=== PATIENT | female | born 1940 | race Caucasian/White ===

== ENCOUNTER 2019-08-19 11:47 | Inpatient (IN) | payer OTHER ==
[~2019-08-19] VITALS: Ht 154.9 cm; Wt 80.7 kg
--- NOTE | 2019-08-19 12:40 | ED General ---
General Chief Complaint: General Problems/Pain Stated Complaint: DIARRHEA; NAUSEA; GEN WEAKNESS Source of Information: Patient Exam Limitations: No Limitations History of Present Illness Date Seen by Provider: Aug 19, 2019 Time Seen by Provider: 12:39 Initial Comments Patient complains of loose stools and nausea and vomiting since last night. She feels very weak. She is unsteady on her feet. Denies fevers or chills. She is dyspneic with any exertion. No complaints of fevers chills or chest pain. She lives alone Allergies and Home Medications Allergies Coded Allergies: Sulfa (Sulfonamide Antibiotics) (Verified Allergy, Unknown, 08/19/19) levofloxacin (Verified Allergy, Unknown, 08/19/19) Patient Home Medication List Home Medication List Reviewed: Yes Review of Systems Review of Systems Constitutional: No chills, No fever; malaise, weakness Respiratory: short of breath Cardiovascular: No chest pain, No edema Gastrointestinal: diarrhea, nausea, vomiting Genitourinary: no symptoms reported Skin: no symptoms reported Psychiatric/Neurological: Weakness All Other Systems Reviewed Negative Unless Noted: Yes Past Onokhjh-Rkvcyo-Ahuqxt Hx Patient Social History Recent Foreign Travel: No Physical Exam Vital Signs Vital Signs - First Documented 08/19/19 12:20 Temp 36.9 Pulse 96 Resp 18 B/P (MAP) 98/56 (70) Pulse Ox 93 O2 Delivery Room Air Capillary Refill : Height, Weight, BMI Height: '" Weight: lbs. oz. kg; BMI Method: General Appearance: No Apparent Distress, WD/WN, Obese Eyes: Bilateral Eye PERRL, Bilateral Eye EOMI HEENT: PERRL/EOMI, Pharynx Normal Neck: Supple Respiratory: Lungs Clear, Normal Breath Sounds Cardiovascular: Regular Rate, Rhythm, No Edema Gastrointestinal: Normal Bowel Sounds, No Organomegaly, No Pulsatile Mass, Non Tender, Soft Back: Normal Inspection Extremity: Normal Inspection, Normal Range of Motion Neurologic/Psychiatric: Alert, Oriented x3, No Motor/Sensory Deficits, Normal Mood/Affect Skin: Normal Color, Warm/Dry Focused Exam Lactate Level 08/19/19 12:55: Lactic Acid Level 12.12*H 08/19/19 14:10: Lactic Acid Level 11.19*H Lactic Acid Level Laboratory Tests Test 08/19/19 12:55 08/19/19 14:10 Lactic Acid Level 12.12 MMOL/L (0.50-2.00) *H 11.19 MMOL/L (0.50-2.00) *H Progress/Results/Core Measures Suspected Sepsis SIRS Temperature: Pulse: Respiratory Rate: Laboratory Tests 08/19/19 12:55: White Blood Count 12.9H Blood Pressure / Mean: 08/19/19 12:55: Lactic Acid Level 12.12*H 08/19/19 14:10: Lactic Acid Level 11.19*H Laboratory Tests 08/19/19 12:55: Creatinine 1.78H, Platelet Count 189, Total Bilirubin 0.8 Results/Orders Lab Results Laboratory Tests Test 08/19/19 12:55 08/19/19 13:36 08/19/19 14:10 08/19/19 14:20 Range/Units White Blood Count 12.9 H 4.3-11.0 10^3/uL Red Blood Count 4.80 4.35-5.85 10^6/uL Hemoglobin 14.8 11.5-16.0 G/DL Hematocrit 46 35-52 % Mean Corpuscular Volume 95 80-99 FL Mean Corpuscular Hemoglobin 31 25-34 PG Mean Corpuscular Hemoglobin Concent 32 32-36 G/DL Red Cell Distribution Width 14.3 10.0-14.5 % Platelet Count 189 130-400 10^3/uL Mean Platelet Volume 10.3 7.4-10.4 FL Neutrophils (%) (Auto) 84 H 42-75 % Lymphocytes (%) (Auto) 7 L 12-44 % Monocytes (%) (Auto) 8 0-12 % Eosinophils (%) (Auto) 0 0-10 % Basophils (%) (Auto) 0 0-10 % Neutrophils # (Auto) 10.8 H 1.8-7.8 X 10^3 Lymphocytes # (Auto) 0.9 L 1.0-4.0 X 10^3 Monocytes # (Auto) 1.1 H 0.0-1.0 X 10^3 Eosinophils # (Auto) 0.0 0.0-0.3 10^3/uL Basophils # (Auto) 0.0 0.0-0.1 10^3/uL Neutrophils % (Manual) 79 % Lymphocytes % (Manual) 6 % Monocytes % (Manual) 10 % Eosinophils % (Manual) 0 % Basophils % (Manual) 0 % Metamyelocytes % 2 % Band Neutrophils 3 % Sodium Level 138 135-145 MMOL/L Potassium Level 4.2 3.6-5.0 MMOL/L Chloride Level 97 L 98-107 MMOL/L Carbon Dioxide Level 16 L 21-32 MMOL/L Anion Gap 25 H 5-14 MMOL/L Blood Urea Nitrogen 25 H 7-18 MG/DL Creatinine 1.78 H 0.60-1.30 MG/DL Estimat Glomerular Filtration Rate 27 BUN/Creatinine Ratio 14 Glucose Level 271 H 70-105 MG/DL Lactic Acid Level 12.12 *H 11.19 *H 0.50-2.00 MMOL/L Calcium Level 9.5 8.5-10.1 MG/DL Corrected Calcium 8.5-10.1 MG/DL Magnesium Level 2.4 1.6-2.4 MG/DL Total Bilirubin 0.8 0.1-1.0 MG/DL Aspartate Amino Transf (AST/SGOT) 519 H 5-34 U/L Alanine Aminotransferase (ALT/SGPT) 379 H 0-55 U/L Alkaline Phosphatase 78 40-136 U/L Troponin I > 25.00 *H <0.30 NG/ML Pro-B-Type Natriuretic Peptide 1519.0 H 1449.0 H <75.0 PG/ML Total Protein 7.7 6.4-8.2 GM/DL Albumin 4.6 H 3.2-4.5 GM/DL Lipase 21 8-78 U/L Urine Color YELLOW Urine Clarity CLEAR Urine pH 7.5 5-9 Urine Specific [place] 1.020 1.016-1.022 Urine Protein 1+ H NEGATIVE Urine Glucose (UA) NEGATIVE NEGATIVE Urine Ketones 1+ H NEGATIVE Urine Nitrite NEGATIVE NEGATIVE Urine Bilirubin NEGATIVE NEGATIVE Urine Urobilinogen 0.2 < = 1.0 MG/DL Urine Leukocyte Esterase NEGATIVE NEGATIVE Urine RBC (Auto) TRACE H NEGATIVE Urine RBC 5-10 H /HPF Urine WBC NONE /HPF Urine Squamous Epithelial Cells RARE /HPF Urine Crystals NONE /LPF Urine Bacteria NEGATIVE /HPF Urine Casts PRESENT /LPF Urine Granular Casts RARE /LPF Urine Mucus NONE /LPF Urine Culture Indicated NO My Orders Orders - ENEIDA LISA MD Cbc With Automated Diff (08/19/19 12:07) Comprehensive Metabolic Panel (08/19/19 12:07) Lactic Acid Analyzer (08/19/19 12:07) Lipase (08/19/19 12:07) Magnesium (08/19/19 12:07) Ua Culture If Indicated (08/19/19 12:07) Ns Iv 1000 Ml (Sodium Chloride 0.9%) (08/19/19 13:15) Ondansetron Injection (Zofran Injectio (08/19/19 13:15) Manual Differential (08/19/19 12:55) Blood Culture (08/19/19 14:03) Chest 1 View Ap/Pa Only (08/19/19 14:06) Ns Iv 1000 Ml (Sodium Chloride 0.9%) (08/19/19 14:15) Troponin I Fs (08/19/19 14:45) Ekg Tracing (08/19/19 14:45) Probnp Fs (08/19/19 14:48) Blood Culture (08/19/19 15:06) Piperacillin/Tazobactam (Bulk) (Zosyn In (08/19/19 15:45) Probnp Fs (08/19/19 13:36) Troponin I Fs (08/19/19 13:36) Piperacillin Sodium/Tazobactam (Zosyn Vi (08/19/19 15:51) Ns (Ivpb) (Sodium Chloride 0.9% Ivpb Bag (08/19/19 15:52) Medications Given in ED Current Medications Medications Dose Ordered Sig/Luis Miguel Route Start Time Stop Time Status Last Admin Dose Admin Ondansetron HCl 4 mg ONCE ONCE IVP 08/19/19 13:15 08/19/19 13:16 DC 08/19/19 13:12 4 MG Piperacillin Sod/ Tazobactam Sod 4.5 gm/Sodium Chloride 120 ml @ 240 mls/hr ONCE ONCE IV 08/19/19 15:45 08/19/19 16:14 08/19/19 16:02 240 MLS/HR Vital Signs/I&O 08/19/19 12:20 Temp 36.9 Pulse 96 Resp 18 B/P (MAP) 98/56 (70) Pulse Ox 93 O2 Delivery Room Air Capillary Refill : Progress Note : Progress Note When I reexamined the patient around 1430. She complained of shortness of air. She still denied chest pain. I ordered a EKG and a troponin. EKG was done at approximately [address] elevation. I paged Dr. Greene who promptly called back. We set him EKG reviewed. He nitially thought the changes were chronic. I got back her elevated troponin (20) at 1545. I spoke with Dr. Greene again he recommended transfer to the [place] ICU where he would cath her today. EMS was summoned and they transported the patient at 1610. Patient continues to deny chest pain. I also spoke with Dr. Monae the hospitalist on- call take care of in the hospital Departure Communication (Admissions) Time/Spoke to Admitting Phy: 15:[address] Monae and Dr. Greene about admission. Impression Primary Impression: Sepsis Additional Impression: Myocardial infarction acute Disposition: 09 ADMITTED INPATIENT Condition: Critical Admissions Decision to Admit Reason: Admit from ER (General) Decision to Admit/Date: Aug 19, 2019 Time/Decision to Admit Time: 15:00 Departure-Patient Inst. Referrals: SHREYAS DE LEÓN DO (PCP/Family) Primary Care Physician ENEIDA LISA MD Aug 19, 2019 12:40 POS
[2019-08-19 13:12] LABS: BASOPHILS % (AUTO) 0 % (0-10); EOSINOPHILS % (AUTO) 0 % (0-10); HEMATOCRIT 46 % (35-52); HEMOGLOBIN 14.8 G/DL (11.5-16.0); LYMPHOCYTES % (AUTO) 7 % (12-44); MEAN CORPUSCULAR HEMOGLOBIN 31 PG (25-34); MEAN CORPUSCULAR HGB CONC 32 G/DL (32-36); MEAN CORPUSCULAR VOLUME 95 FL (80-99); MEAN PLATELET VOLUME 10.3 FL (7.4-10.4); MONOCYTES % (AUTO) 8 % (0-12); NEUTROPHILS % (AUTO) 84 % (42-75); PLATELET COUNT 189 10^3/uL (130-400); RED CELL DISTRIBUTION WIDTH 14.3 % (10.0-14.5); WHITE BLOOD COUNT 12.9 10^3/uL (4.3-11.0)
[2019-08-19 13:13] LABS: LYMPHOCYTES # (AUTO) 0.9 X 10^3 (1.0-4.0); MONOCYTES # (AUTO) 1.1 X 10^3 (0.0-1.0); NEUTROPHILS # (AUTO) 10.8 X 10^3 (1.8-7.8)
[2019-08-19] MEDS ORDERED: ONDANSETRON 4 MG/2 ML (SDV) Z0FRAN IVP ONE (13:15)
[2019-08-19] MEDS ORDERED: NS IV 1000 ML 1,000 ML IV SCH ×4 (13:15→18:04)
[2019-08-19 13:28] LABS: BAND NEUTROPHILS 3 %; BASOPHILS % (MANUAL) 0 %; EOSINOPHILS % (MANUAL) 0 %; LYMPHOCYTES % (MANUAL) 6 %; METAMYELOCYTES % 2 %; MONOCYTES % (MANUAL) 10 %; NEUTROPHILS % (MANUAL) 79 %
[2019-08-19 13:31] LABS: ALKALINE PHOSPHATASE 78 U/L (40-136); BILIRUBIN,TOTAL 0.8 MG/DL (0.1-1.0); BUN/CREATININE RATIO 14; CALCIUM 9.5 MG/DL (8.5-10.1); CARBON DIOXIDE 16 MMOL/L (21-32); CHLORIDE 97 MMOL/L (98-107); CREATININE SERUM 1.78 MG/DL (0.60-1.30); GFR ESTIMATED 27; GLUCOSE 271 MG/DL (70-105); MAGNESIUM 2.4 MG/DL (1.6-2.4); POTASSIUM 4.2 MMOL/L (3.6-5.0); SODIUM 138 MMOL/L (135-145)
[2019-08-19 13:32] LABS: ALANINE AMINOTRANSFERASE 379 U/L (0-55); ALBUMIN 4.6 GM/DL (3.2-4.5); LIPASE 21 U/L (8-78); TOTAL PROTEIN 7.7 GM/DL (6.4-8.2)
[2019-08-19 14:42] LABS: BILIRUBIN,URINE NEGATIVE (NEGATIVE); CLARITY,URINE CLEAR; COLOR,URINE YELLOW; GLUCOSE, URINE (UA) NEGATIVE (NEGATIVE); KETONES,URINE 1+ (NEGATIVE); LEUKOCYTE ESTERASE ,URINE NEGATIVE (NEGATIVE); NITRITE,URINE NEGATIVE (NEGATIVE); PH,URINE 7.5 (5-9); PROTEIN,URINE 1+ (NEGATIVE)
[2019-08-19 14:43] LABS: BACTERIA,URINE NEGATIVE /HPF; GRANULAR CASTS,URINE RARE /LPF; SQUAMOUS EPITHELIAL CELL,UR RARE /HPF
--- NOTE | 2019-08-19 14:55 | Diagnostic Imaging Report ---
INDICATION: Shortness of air. COMPARISON: None. FINDINGS: Single frontal radiographic view of the chest was obtained and shows a large air-fluid level projecting over the cardiomediastinal structures consistent with probable large hiatal hernia. Cardiac silhouette appears prominent, but may be exaggerated by mass effect or superimposition of shadows from the hiatal hernia. Pulmonary vasculature is within normal limits. There is prominent right paratracheal fullness as well. Otherwise, lungs are clear. There is no large effusion or pneumothorax. Osseous structures show no gross acute abnormalities. IMPRESSION: 1. Large hiatal hernia. 2. Cardiomegaly versus artifact related to the large hiatal hernia. 3. Prominence of the right paratracheal region. This may be artifact as well and related to mediastinal vessels or mediastinal fat. Mediastinal mass is not excluded. Correlation with post contrast CT chest is advised. Dictated by: Dictated on workstation # [id number]
--- NOTE | 2019-08-19 15:37 | NUR ---
Called [facility] to talk to Dr. Chin's nurse about getting a previous EKG on patient. They said they don't have records there and told me to call . Talked to them and they looked in patient's chart and they only had Doctor's interpretation saying NSR in 2006. There was no strip in file. Doctor Kimberlee was informed.
[2019-08-19] MEDS ORDERED: PIPERACILLIN/TAZOBACTAM (BULK) 4.5 GM in NS (IVPB) 100 ML IV ONE (15:45)
[2019-08-19] MEDS ORDERED: PIPERACILLIN/TAZO 4.5 GM VIAL (ZOSYN) IV ONE (15:51)
[2019-08-19] MEDS ORDERED: NS (IVPB) 100 ML ONE (15:52)
--- NOTE | 2019-08-19 16:04 | NUR ---
EMS arrived at this time. Report was given. Patient was loaded.
[2019-08-19] MEDS ORDERED: MIDAZOLAM 5 MG/5 ML (VERSED) VIAL ONE (16:20)
[2019-08-19] MEDS ORDERED: HEParin 1000 UNIT/ML (10ML VIAL) FOR BOLUS ONE (16:20)
[2019-08-19] MEDS ORDERED: LIDOCAINE 1% INJ 20 ML 20 ML VIAL ONE (16:20)
[2019-08-19] MEDS ORDERED: fentaNYL INJECTION 100 MCG/2 ML AMP ONE (16:20)
[2019-08-19] MEDS ORDERED: NITRO DRIP 25000 MCG/D5W 0 ML IV ONE (16:21)
[2019-08-19] MEDS ORDERED: NS IV 1000 ML 1,000 ML ONE (16:21)
[2019-08-19] MEDS ORDERED: HEParin (CATH LAB) 2,000 ML IV ONE (16:21)
[2019-08-19] MEDS ORDERED: EPTIFIBATIDE BOLUS 20 ML IV ONE (17:08)
[2019-08-19] MEDS ORDERED: ASPIRIN 81 MG CHEW (CHILDREN'S ASA) ONE (17:32)
[2019-08-19] MEDS ORDERED: CLOPIDOGREL 75 MG (PLAVIX) TABLET ONE (17:32)
--- NOTE | 2019-08-19 17:52 | Consultation-Cardiology ---
HPI-Cardiology Cardiology Consultation: Date of Consultation 08/19/19 Time Seen by a Provider: 17:00 Date of Admission Attending Physician Dr Monae Admitting Physician Jaren Marroquin DO Consulting Physician LORAINE SHAHID MD, MA, FACP, FACC, FSCAI, CCDS HPI: Chief Complaint: Reason for consultation: ST elevation on ECG HPI 79 yo woman who presented to [facility] ER with 24 hours of nausea and vomiting and diarrhea. She was diagnosed with gastroenteritis and sepsis and treated accordingly. Several hours after presentation, an ECG was done that showed ST elevation. Dr Mohan (ER physician) called us. The ECG was consistent with a completed anterior wall KS with probable aneurysm formation. Since she was not reporting any chest pain whatsoever, it was not clear if it were an old KS. Troponin was then performed on blood taken at presentation. It was elevated. She was being transferred to this hospital for sepsis. We recommended that transfer be expedited and cath be performed upon arrival. At time of arrival, pt was not reporting any cp or shortness of breath or palp or syncope. Her N/V/D had improved. She noted gen malaise and weakness Review of Systems-Cardiology Review of Systems Constitutional: As described under HPI Eyes: No vision change Ears/Nose/Throat: No ear discharge, No nasal drainage, No recent hearing loss Respiratory: As described under HPI Cardiovascular: As described under HPI Gastrointestinal: As described under HPI Genitourinary: No dysuria, No hematuria, No urine frequency changes Musculoskeletal: No back pain; joint pain (chronic) Skin: No rash, No ulcerations Psychiatric/Neurological: No seizure, No focal weakness, No syncope Hematologic: No bleeding abnormalities All Other Systems Reviewed Negative Unless Noted: Yes PNZ-Ksvaxc-Iveukk Hx Patient Social History Alcohol Use: Denies Use Recreational Drug Use: No Smoking Status: Never a Smoker 2nd Hand Smoke Exposure: No Recent Foreign Travel: No Recent Infectious Disease Expo: No Past Medical History PMH As described under Assessment. Family Medical History Family Medical History: She does not report fam h/o early CAD or SCD Allergies and Home Medications Allergies Coded Allergies: Sulfa (Sulfonamide Antibiotics) (Verified Allergy, Unknown, 08/19/19) levofloxacin (Verified Allergy, Unknown, 08/19/19) Patient Home Medication List Home Medication List Reviewed: Yes Physical Exam-Cardiology Physical Exam Vital Signs/I&O 08/19/19 08/19/19 12:20 16:07 Temp 36.9 36.8 Pulse 96 98 Resp 18 23 B/P (MAP) 98/56 (70) 125/62 Pulse Ox 93 94 O2 Delivery Room Air Nasal Cannula O2 Flow Rate 3.00 Capillary Refill : Less Than 3 Seconds Constitutional: AAO x 3, well-developed, well-nourished HEENT: EOMI, hearing is well preserved; No xanthelasmas are seen Neck: carotid pulses are 2 + bilaterally, with good upstrokes Respiratory: No accessory muscle use; other (fair to good air entry bilaterally) Cardiovascular: regular rate-rhythm, S1 and S2, systolic murmur (2/6 JOSE at card base) Gastrointestinal: No tender; soft; No guarding; rebound, other (large ventral abdomina hernia without signs of incarceration) Extremities: No clubbing, No cyanosis, No significant edema Neurologic/Psychiatric: grossly intact, power is 5/5 both on sides Skin: No rash on exposed areas, No ulcerations on exposed areas Data Review Labs Laboratory Tests 08/19/19 12:55: White Blood Count 12.9H, Red Blood Count 4.80, Hemoglobin 14.8, Hematocrit 46, Mean Corpuscular Volume 95, Mean Corpuscular Hemoglobin 31, Mean Corpuscular Hemoglobin Concent 32, Red Cell Distribution Width 14.3, Platelet Count 189, Mean Platelet Volume 10.3, Neutrophils (%) (Auto) 84H, Lymphocytes (%) (Auto) 7L , Monocytes (%) (Auto) 8, Eosinophils (%) (Auto) 0, Basophils (%) (Auto) 0, Neutrophils # (Auto) 10.8H, Lymphocytes # (Auto) 0.9L, Monocytes # (Auto) 1.1H, Eosinophils # (Auto) 0.0, Basophils # (Auto) 0.0, Neutrophils % (Manual) 79, Lymphocytes % (Manual) 6, Monocytes % (Manual) 10, Eosinophils % (Manual) 0, Basophils % (Manual) 0, Metamyelocytes % 2, Band Neutrophils 3, Sodium Level 138, Potassium Level 4.2, Chloride Level 97L, Carbon Dioxide Level 16L, Anion Gap 25H, Blood Urea Nitrogen 25H, Creatinine 1.78H, Estimat Glomerular Filtration Rate 27, BUN/Creatinine Ratio 14, Glucose Level 271H, Lactic Acid Level 12.12*H, Calcium Level 9.5, Corrected Calcium , Magnesium Level 2.4, Total Bilirubin 0.8, Aspartate Amino Transf (AST/SGOT) 519H, Alanine Aminotransferase (ALT/SGPT) 379H, Alkaline Phosphatase 78, Troponin I 65.96*H, Pro-B-Type Natriuretic Peptide 1519.0H, Total Protein 7.7, Albumin 4.6H, Lipase 21 08/19/19 14:10: Lactic Acid Level 11.19*H 08/19/19 14:20: Urine Color YELLOW, Urine Clarity CLEAR, Urine pH 7.5, Urine Specific [place] 1.020, Urine Protein 1+H, Urine Glucose (UA) NEGATIVE, Urine Ketones 1+H, Urine Nitrite NEGATIVE, Urine Bilirubin NEGATIVE, Urine Urobilinogen 0.2, Urine Leukocyte Esterase NEGATIVE, Urine RBC (Auto) TRACEH, Urine RBC 5-10H, Urine WBC NONE, Urine Squamous Epithelial Cells RARE, Urine Crystals NONE, Urine Bacteria NEGATIVE, Urine Casts PRESENT, Urine Granular Casts RARE, Urine Mucus NONE, Urine Culture Indicated NO 08/19/19 15:14: Troponin I 84.07*H, Pro-B-Type Natriuretic Peptide 1449.0H Laboratory Tests 08/19/19 12:55 A/P-Cardiology Assessment/Admission Diagnosis Recent STEMI (probably on 08/18/19). Card cath of 08/19/19: prox occlusion of a small caliber LAD (attempts at PCI unsuccessful) mod diffuse disease of the LCX and RCA, LVEDP approx 30, LVEF approx 35-40, apical dyskinesis/aneurysm Sepsis of undetermined etiology Renal failure, probably acute Ischemic cardiomyopathy and acute systolic CHF Discussion and Recomendations * ASA and clopidogrel for CAD * BB and YUDELKA-inhib for ischemic cm and CHF * I spoke with Dr Monae on the phone. He is managing sepsis and renal failure * Monitor labs * Prognosis guarded LORAINE SHAHID MD [facility] CCDS Aug 19, 2019 17:52 POS
[2019-08-19] MEDS ORDERED: ONDANSETRON 4 MG/2 ML (SDV) Z0FRAN ONE (18:14)
[2019-08-19] MEDS ORDERED: PATIENT MAY USE OWN MEDS, ALL PO SCH (18:15)
[2019-08-19] MEDS ORDERED: FUROSEMIDE 40 MG/4 ML INJ (LASIX) IVP ONE (18:15)
--- NOTE | 2019-08-19 18:15 | NUR ---
CHERRY PRIETO admitted to room , with an admitting diagnosis of sepsis, on from [place] via cart, accompanied by staff.CHERRY PRIETO introduced to surroundings, call light, bed controls, phone, TV, temperature control, lights, meal times, smoking policy, visitor policy, side rail policy, bathrooms and showers. Patient Rights given to patient in the handbook. CHERRY PRIETO verbalizes understanding that [facility] is not responsible for the loss or damage to any personal effects or valuables that are kept in the patients posession during their hospitalization. The following Patient Care Plans were discussed with the pt: Discharge Planning. CHERRY PRIETO verbalizes understanding of Interdisciplinary Patient Education. Patient and/or family were informed about the Rapid Response Team and its purpose.
[2019-08-19] MEDS ORDERED: NS IV 500 ML 500 ML ONE (18:29)
[2019-08-19] MEDS ORDERED: NS IV 1000 ML 2,000 ML ONE (18:29)
[2019-08-19] MEDS ORDERED: PROMETHAZINE INJ 25 MG/ML (PHENERGAN) AMP IVP PRN (18:30)
[2019-08-19] MEDS ORDERED: NS IV ONE (18:30)
[2019-08-19] MEDS ORDERED: DOBUTamine DRIP 250 ML IV SCH (18:30)
[2019-08-19 18:45] VITALS: BP 104/64
[2019-08-19 19:00] VITALS: BP 101/63
[2019-08-19 19:08] LABS: ABG BASE EXCESS -17.7 MMOL/L (-2.5-2.5); ABG OXYGEN SATURATION 97 % (94-100); ABG PO2 99 MMHG (79-93); ABG TCO2 8.6 MMOL/L (21.0-31.0)
[2019-08-19] MEDS ORDERED: NS (IVPB) 250 ML ONE (19:09)
[2019-08-19] MEDS ORDERED: NOREPINEPHRINE 4 MG/4 ML (LEVOPHED) AMP IV ONE (19:09)
[2019-08-19 19:10] LABS: ABG PCO2 18 MMHG (35-45); ABG PH 7.28 (7.37-7.43)
[2019-08-19 19:11] LABS: ALLENS TEST YES-POS; INSPIRED O2 8; PATIENT TEMP 36.3; VENTILATOR NO
[2019-08-19] MEDS ORDERED: 1/2 NS IV SOLUTION 1,000 ML IV ONE (19:11)
[2019-08-19] MEDS ORDERED: SODIUM BICARB 8.4% 50 MEQ/50 ML VIAL ONE (19:11)
[2019-08-19] MEDS ORDERED: 1/2 NS IV SOLUTION 1,000 ML IV SCH (19:15)
[2019-08-19] MEDS ORDERED: NS IV 500 ML 500 ML IV SCH (19:15)
[2019-08-19] MEDS ORDERED: SODIUM BICARB 8.4% 50 MEQ/50 ML VIAL IV NR (19:15)
[2019-08-19] MEDS ORDERED: SODIUM BICARB 8.4% 50 MEQ/50 ML VIAL IV ONE (19:15)
[2019-08-19] MEDS ORDERED: NOREPINEPHRINE 4 MG in NS (IVPB) 250 ML IV SCH (19:15)
--- NOTE | 2019-08-19 19:30 | NUR ---
THIS RN TO ASSUME CARE OF PT
--- NOTE | 2019-08-19 19:39 | CARDIAC CATHETERIZATION ---
DATE OF SERVICE: 08/19/2019 CARDIAC CATHETERIZATION REPORT The patient is an 79-year-old lady, who presented to the [place] [facility] with 24 hours of nausea, vomiting and diarrhea. She was diagnosed with gastroenteritis and sepsis and was treated accordingly. Several hours later, an electrocardiogram was done that showed ST elevation. We were called by the ER physician at that time. The electrocardiogram was consistent with a completed anterior wall myocardial infarction with probable aneurysm formation. Since she was not reporting any chest pain whatsoever, it was not clear if it were an old [place]. We requested troponin, which was elevated. She was being transferred to this hospital for sepsis. We recommended the transfer to be expedited and cardiac catheterization will be performed upon arrival. Upon arrival, she was not reporting any chest pain, shortness of breath, palpitations or syncope. Informed consent was obtained. DESCRIPTION OF PROCEDURE: She was brought to the cardiac catheterization laboratory. Right groin was prepared and draped in the usual sterile fashion. Lidocaine 1% was used for local anesthesia. Modified Seldinger technique was used to advance a 6-Indian sheath in right femoral artery. A 6-Indian JL4 guide catheter was used to carry out left coronary angiography and subsequently, percutaneous intervention was attempted to the left anterior descending that is described below. We then used 6-Indian JR4 catheter for right coronary angiography and a 6-Indian pigtail catheter for left heart catheterization and left ventricular angiography. Angiography of the right femoral artery was carried out through the sheath at the end of the procedure and Mynx was used to achieve hemostasis. PERCUTANEOUS INTERVENTION TO THE LEFT ANTERIOR DESCENDING: Percutaneous intervention was attempted to the left anterior descending, which is a small caliber vessel and is occluded in its proximal portion. Multiple attempts were made to cross the lesion with a ChoICE Floppy wire. The attempts remained unsuccessful. The guide used was JL4. 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 Therefore, we did not make further attempts. HEMODYNAMICS: Left ventricular end-diastolic pressure following coronary angiography was 34 mmHg. There is no significant pressure gradient on pullback across the aortic valve. Ascending aortic pressure was 100/73 with a mean of 85 mmHg. CORONARY ANGIOGRAPHY: Left main coronary artery is small, but does not exhibit significant disease. Left anterior descending artery is small and is occluded in its proximal portion and attempts at percutaneous intervention were unsuccessful. A ramus intermedius branch is small and does not exhibit significant disease. Left circumflex artery is small and has moderate diffuse disease. Right coronary artery is large and dominant and has approximately, 50 to 60% ostial stenosis and 50 to 60% stenosis at the bifurcation of the posterior descending and the posterolateral segment of the right coronary. LEFT VENTRICULAR ANGIOGRAPHY: Left ventricular angiography was carried out in the right anterior oblique projection. There is impairment of global left ventricular systolic function. Left ventricular ejection fraction is 35 to 40%. There is apical dyskinesis. CONCLUSIONS: 1. Coronary artery disease primarily consisting of proximal occlusion of a small caliber left anterior descending to which attempts at percutaneous intervention were unsuccessful. A ramus intermedius and left circumflex are small caliber vessels that exhibit moderate diffuse disease. Right coronary artery is large and dominant and has 50 to 60% ostial and 50 to 60% distal stenoses. 2. Impairment of global left ventricular systolic function with ejection fraction of 35 to 40%. 3. Elevated left ventricular end-diastolic pressure. 4. Apical dyskinesis/aneurysm. DISCUSSION AND RECOMMENDATIONS: Therapy is with dual antiplatelet therapy, statins, beta-blockers and YUDELKA inhibitors. Diuretics will also be used as needed and as tolerated. Job ID: [id number] DocumentID: [id number] Dictated Date: 08/19/2019 18:21:[address] Date: 08/19/2019 19:38:30 Dictated By: LORAINE SHAHID MD, MA, FACP, FACC, MTDD
--- NOTE | 2019-08-19 19:47 | NUR ---
DR PHELPS NOTIFIED OF CONSULT ORDERS TO LET E-ICU MANAGE PT TONIGHT.
[2019-08-19 20:00] VITALS: BP 56/45
--- NOTE | 2019-08-19 20:06 | Progress Note-Post Operative ---
Post-Operative Progess Note Surgeon (s)/Convention Worker (s) Surgeon GERMÁN BARNEY DO Convention Worker: NONE Pre-Operative Diagnosis Septic Shock, Venous insufficiency, CAD Post-Operative Diagnosis same Procedure & Operative Findings Date of Procedure 08/19/19 Procedure Performed/Findings Insertion triple lumen catheter Left IJ with US guidance Anesthesia Type local lidocaine Estimated Blood Loss Estimated blood loss (mL): 5ml Specimens/Packing Specimens Removed none GERMÁN BARNEY DO Aug 19, 2019 20:06 POS
--- NOTE | 2019-08-19 20:12 | Consultation - Surgery ---
History of Present Illness History of Present Illness Patient Consulted On(rubens/time) 08/19/19 20:07 Time Seen by Provider: 19:29 History of Present Illness Surgery asked to consult regarding Venous Insufficiency, Septic shock and need for central venous access. HPI per Cardiology: HPI 79 yo woman who presented to [facility] ER with 24 hours of nausea and vomiting and diarrhea. She was diagnosed with gastroenteritis and sepsis and treated accordingly. Several hours after presentation, an ECG was done that showed ST elevation. Dr Mohan (ER physician) called us. 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 Since she was not r eporting any chest pain whatsoever, it was not clear if it were an old OH. Troponin was then performed on blood taken at presentation. It was elevated. She was being transferred to this hospital for sepsis. We recommended that transfer be expedited and cath be performed upon arrival. At time of arrival, pt was not reporting any cp or shortness of breath or palp or syncope. Her N/V/D had improved. She noted gen malaise and weakness When I spoke to pt she was hypotensive and they were holding pressure at cardiac cath access site. She needed urgent central IV access for vasopressor support. Allergies and Home Medications Allergies Coded Allergies: Sulfa (Sulfonamide Antibiotics) (Verified Allergy, Unknown, 08/19/19) levofloxacin (Verified Allergy, Unknown, 08/19/19) Patient Home Medication List Home Medication List Reviewed: Yes Past Ulxpwxo-Ldbivt-Telsfp Hx Patient Social History Alcohol Use: Denies Use Recreational Drug Use: No Smoking Status: Never a Smoker 2nd Hand Smoke Exposure: No Recent Foreign Travel: No Contact w/Someone Who Travel: No Recent Infectious Disease Expo: No Recent Hopitalizations: No Immunizations Up To Date Date of Pneumonia Vaccine: Aug 19, 2009 Date of Influenza Vaccine: Jul 08, 2019 Seasonal Allergies Seasonal Allergies: No Surgeries History of Surgeries: Yes Surgeries: Appendectomy, Bladder Surgery Respiratory History of Respiratory Disorde: No Cardiovascular History of Cardiac Disorders: Yes Cardiac Disorders: Hypertension Neurological History of Neurological Disord: No Genitourinary History of Genitourinary Disor: Yes (Over Active Bladder) Musculoskeletal History of Musculoskeletal Dis: No Endocrine History of Endocrine Disorders: No HEENT History of HEENT Disorders: No Cancer History of Cancer: No Psychosocial History of Psychiatric Problem: Yes Behavioral Health Disorders: Depression Integumentary History of Skin or Integumenta: No Blood Transfusions History of Blood Disorders: No Family Medical History Significant Family History: Other Conditions/Hx (Denies family hx of CAD ) Review of Systems-General Constitutional: diaphoresis, malaise, weakness EENTM: blurred vision; No mouth pain, No mouth swelling, No epistaxis Respiratory: dyspnea on exertion; No hemoptysis; short of breath Cardiovascular: chest pain, edema, Hx of Intervention Gastrointestinal: abdominal pain, diarrhea; No melena; nausea, vomiting Genitourinary: No dysuria, No frequency, No hematuria Musculoskeletal: back pain, joint pain, joint swelling, muscle stiffness Skin: No change in color, No change in hair/nails Psychiatric/Neurological: Anxiety, Depressed; Denies Seizure, Denies Tremors Other pt denies heat or cold intolerance, no hx of abnormal bleeding or bruising Physical Exam-General Problems Physical Exam Vital Signs Vital Signs - First Documented 08/19/19 08/19/19 12:20 16:07 Temp 36.9 Pulse 96 Resp 18 B/P (MAP) 98/56 (70) Pulse Ox 93 O2 Delivery Room Air O2 Flow Rate 3.00 Capillary Refill : Less Than 3 Seconds General Appearance: severe distress, obese Eyes: Bilateral Eye PERRL, Bilateral Eye EOMI HEENT: pharynx normal (but dry); No scleral icterus (R), No scleral icterus (L); other (poor dentition) Neck: normal inspection (short); No thyromegaly Respiratory: decreased breath sounds, accessory muscle use, crackles, wheezing Cardiovascular: tachycardia, systolic murmur (II/ JOSE) Gastrointestinal: non tender, soft, no organomegaly Extremities: no pedal edema, no calf tenderness, normal capillary refill Neurologic/Psychiatric: concept artist II-XII nml as tested, alert, normal mood/affect, oriented x 3 Skin: normal color, warm/dry Lymphatic: no adenopathy (neck, axilla or groin) Data Review Labs Laboratory Tests 08/19/19 12:55: White Blood Count 12.9H, Red Blood Count 4.80, Hemoglobin 14.8, Hematocrit 46, Mean Corpuscular Volume 95, Mean Corpuscular Hemoglobin 31, Mean Corpuscular Hemoglobin Concent 32, Red Cell Distribution Width 14.3, Platelet Count 189, Mean Platelet Volume 10.3, Neutrophils (%) (Auto) 84H, Lymphocytes (%) (Auto) 7L , Monocytes (%) (Auto) 8, Eosinophils (%) (Auto) 0, Basophils (%) (Auto) 0, Neutrophils # (Auto) 10.8H, Lymphocytes # (Auto) 0.9L, Monocytes # (Auto) 1.1H, Eosinophils # (Auto) 0.0, Basophils # (Auto) 0.0, Neutrophils % (Manual) 79, Lymphocytes % (Manual) 6, Monocytes % (Manual) 10, Eosinophils % (Manual) 0, Basophils % (Manual) 0, Metamyelocytes % 2, Band Neutrophils 3, Sodium Level 13 8, Potassium Level 4.2, Chloride Level 97L, Carbon Dioxide Level 16L, Anion Gap 25H, Blood Urea Nitrogen 25H, Creatinine 1.78H, Estimat Glomerular Filtration Rate 27, BUN/Creatinine Ratio 14, Glucose Level 271H, Lactic Acid Level 12.12*H, Calcium Level 9.5, Corrected Calcium , Magnesium Level 2.4, Total Bilirubin 0.8, Aspartate Amino Transf (AST/SGOT) 519H, Alanine Aminotransferase (ALT/SGPT) 379H , Alkaline Phosphatase 78, Troponin I 65.96*H, Pro-B-Type Natriuretic Peptide 1519.0H, Total Protein 7.7, Albumin 4.6H, Lipase 21 08/19/19 14:10: Lactic Acid Level 11.19*H 08/19/19 14:20: Urine Color YELLOW, Urine Clarity CLEAR, Urine pH 7.5, Urine Specific [place] 1.020, Urine Protein 1+H, Urine Glucose (UA) NEGATIVE, Urine Ketones 1+H, Urine Nitrite NEGATIVE, Urine Bilirubin NEGATIVE, Urine Urobilinogen 0.2, Urine Leukocyte Esterase NEGATIVE, Urine RBC (Auto) TRACEH, Urine RBC 5-10H, Urine WBC NONE, Urine Squamous Epithelial Cells RARE, Urine Crystals NONE, Urine Bacteria NEGATIVE, Urine Casts PRESENT, Urine Granular Casts RARE, Urine Mucus NONE, Urine Culture Indicated NO 08/19/19 15:14: Troponin I 84.07*H, Pro-B-Type Natriuretic Peptide 1449.0H 08/19/19 18:54: Blood Gas Puncture Site RT RAD, Blood Gas Patient Temperature 36.3, Arterial Blood pH 7.28*L, Arterial Blood Partial Pressure CO2 18*L, Arterial Blood Partial Pressure O2 99H, Arterial Blood HCO3 8*L, Arterial Blood Total CO2 8.6L, Arterial Blood Oxygen Saturation 97, Arterial Blood Base Excess -17.7L, Giuseppe Test YES-POS, Blood Gas Ventilator Setting NO, Blood Gas Inspired Oxygen 8 08/19/19 18:55: Lactic Acid Level 11.77*H Assessment/Plan Assessment/Plan Assessment/Plan Septic Shock STEMI Venous insufficiency Pt just had heart cath and is in shock; septic vs. cardiac. She need emergent access for vasopressor support. I talked with pt and explained the procedure; went over risks and complications not limited to pain, bleeding, infection, scar, damage to major vessels and even pneumothorax. She agreed with procedure. Clinical Quality Measures DVT/VTE Risk/Contraindication: Risk Factor Score Per Nursin RFS Level Per Nursing on Admit: 4+=Very High GERMÁN BARNEY DO Aug 19, 2019 20:12 POS
[2019-08-19 20:21] LABS: BASOPHILS % (AUTO) 0 % (0-10); EOSINOPHILS % (AUTO) 0 % (0-10); HEMATOCRIT 24 % (35-52); HEMOGLOBIN 7.7 G/DL (11.5-16.0); LYMPHOCYTES # (AUTO) 0.9 X 10^3 (1.0-4.0); LYMPHOCYTES % (AUTO) 9 % (12-44); MEAN CORPUSCULAR HEMOGLOBIN 31 PG (25-34); MEAN CORPUSCULAR HGB CONC 32 G/DL (32-36); MEAN CORPUSCULAR VOLUME 96 FL (80-99); MEAN PLATELET VOLUME 10.4 FL (7.4-10.4); MONOCYTES % (AUTO) 10 % (0-12); NEUTROPHILS # (AUTO) 8.1 X 10^3 (1.8-7.8); NEUTROPHILS % (AUTO) 81 % (42-75); PLATELET COUNT 90 10^3/uL (130-400); RED CELL DISTRIBUTION WIDTH 14.7 % (10.0-14.5); WHITE BLOOD COUNT 10.1 10^3/uL (4.3-11.0)
--- NOTE | 2019-08-19 20:28 | History & Physical-Hospitalist ---
History of Present Illness HPI/Chief Complaint Jess Painter is an 79yoF who presented to the [place] ER after having nausea, vomiting, and diarrhea since the previous night. She is critically ill at the time of my exam. Her friend states that she had been very sick since the night before but she didn't let anyone know. She was reportedly very short of breath with exertion prior to arrival and reportedly without chest pain. She was initially thought to have sepsis due to a viral gastroenteritis, but further evaluation revealed a STEMI with significantly elevated troponin. It is thought that she suffered the CT the previous night and had ongoing ischemia at the time of her presentation. She was transferred to [facility] for cardiac catheterization. Dr. Greene performed the catheterization and there were no lesions amenable to intervention. She did have a proximal LAD lesion which was unable to be stented as well as moderate CAD of the RCA. She was then moved to the ICU where she developed hypotension and it was at this time that I evaluated the patient. 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 She told me that she would want everything done including chest compressions and intubation if it was required. Source: patient, other (friend) Exam Limitations: clinical condition Date Seen 08/19/19 Time Seen by a Provider: 19:00 Attending Physician Catie Godwin MD PCP Jaren Marroquin DO Referring Physician Date of Admission Aug 19, 2019 at 18:29 Home Medications & Allergies Home Medications Reviewed patient Home Medication Reconciliation performed by pharmacy medication reconciliations document management technician and/or nursing. Patients Allergies have been reviewed. Allergies Allergies Coded Allergies Sulfa (Sulfonamide Antibiotics) (Verified Allergy, Unknown, 08/19/19) levofloxacin (Verified Allergy, Unknown, 08/19/19) Past [place]-Zoibzc-Dbloon Hx Past Med/Social Hx: Reviewed Nursing Past Med/Soc Hx Patient Social History Alcohol Use: Denies Use Recreational Drug Use: No Smoking Status: Never a Smoker 2nd Hand Smoke Exposure: No Recent Foreign Travel: No Contact w/other who traveled: No Recent Hopitalizations: No Recent Infectious Disease Expo: No Immunizations Up To Date Date of Pneumonia Vaccine: Aug 19, 2009 Date of Influenza Vaccine: Jul 08, 2019 Seasonal Allergies Seasonal Allergies: No Past Medical History Surgeries: Appendectomy, Bladder Surgery Cardiac: Hypertension Psychosocial: Depression History of Blood Disorders: No Family History Other Conditions/Hx (Denies family hx of CAD ) Review of Systems ROS-Unable to Obtain: critically ill Constitutional: malaise Respiratory: dyspnea on exertion Gastrointestinal: diarrhea, nausea, vomiting Genitourinary: no symptoms reported Musculoskeletal: no symptoms reported Skin: no symptoms reported Psychiatric/Neurological: No Symptoms Reported Physical Exam Physical Exam Vital Signs Vital Signs - First Documented 08/19/19 08/19/19 12:20 16:07 Temp 36.9 Pulse 96 Resp 18 B/P (MAP) 98/56 (70) Pulse Ox 93 O2 Delivery Room Air O2 Flow Rate 3.00 Capillary Refill : Less Than 3 Seconds Height, Weight, BMI Height: '" Weight: lbs. oz. kg; 33.00 BMI Method: General Appearance: Obese, Severe Distress HEENT: PERRL/EOMI, Other (dry mucous membranes) Respiratory: Chest Non Tender, Lungs Clear, Normal Breath Sounds, Other (tachypnea) Cardiovascular: No Murmur, Tachycardia, Other (regular rhythm) Gastrointestinal: Normal Bowel Sounds, Non Tender, Soft Extremity: Normal Inspection, Pedal Edema Neurologic/Psychiatric: Alert, Oriented x3, No Motor/Sensory Deficits Skin: Cool, Pallor Lymphatic: No Adenopathy Results Results/Procedures Labs Laboratory Tests 08/19/19 12:55 08/19/19 20:05 Patient resulted labs reviewed. Imaging: Reviewed Imaging Report Assessment/Plan Admission Diagnosis STEMI Admission Status: Inpatient Order (span 2 midnights) Reason for Inpatient Admission: STEMI with cardiogenic shock Assessment and Plan STEMI Cardiogenic shock Hemorrhagic shock CAD Lactic acidosis High anion gap metabolic acidosis -EKG revealed STEMI -Troponin significantly elevated -Cardiology consulted -Transferred to [facility] cardiac cath -No lesion amenable to PCI -Developed post-cath hypotension -Surgery consulted for central line placement -Begin pressors, Levophed and Dobutamine -MAP goal >65 -Repeat Hgb 7.7 from 14.8 -Transfuse 2 units PRBC -Apply pressure to cath site in right groin -Consult critical care -May require intubation, hold off at this time -ABG revealed severe metabolic acidosis -Given 2 amps of bicarb -Transition to bicarb containing fluids at 150 cc/hr Concern for septic shock -No source for infection identified -Started on Zosyn, continue -Await culture results DVT Prophylaxis: held due to major acttve bleeding FULL CODE Critical Care Critically Ill Patient CC Start/Stop Time : Critical Care Start Date: Aug 19, 2019 Critical Care Start Time: 19:00 Stop date: Aug 19, 2019 Stop Time: 19:30 Diagnosis/Problems Diagnosis/Problems (1) Cardiogenic shock Status: Acute (2) Hemorrhagic shock Status: Acute (3) Lactic acidosis Status: Acute (4) High anion gap metabolic acidosis Status: Acute (5) CAD (coronary artery disease) Status: Acute Qualifiers: Coronary Disease-Associated Artery/Lesion type: [place] artery [place] vs. transplanted heart: [place] heart (6) STEMI (ST elevation myocardial infarction) Status: Acute Qualifiers: Involved coronary artery: LAD coronary artery Qualified Codes: I21.02 - ST elevation (STEMI) myocardial infarction involving left anterior descending coronary artery Clinical Quality Measures DVT/VTE Risk/Contraindication: Risk Factor Score Per Nursin RFS Level Per Nursing on Admit: 4+=Very High CATIE GODWIN MD Aug 19, 2019 20:28 POS
[2019-08-19] MEDS ORDERED: SUCCINYLCHOLINE INJ 100 MG/5 ML SYR INJ ONE (20:29)
[2019-08-19] MEDS ORDERED: EPINEPHrine INJECTION 1 MG/ML AMP IJ ONE (20:29)
[2019-08-19] MEDS ORDERED: ATROPINE INJECTION 1 MG/10 ML SYR (ABBOTT) INJ ONE (20:29)
[2019-08-19] MEDS ORDERED: CALCIUM GLUCONATE 10% INJ 4.65 MEQ in NS (IVPB) 50 ML IV ONE (20:30)
[2019-08-19 20:33] LABS: CREATININE SERUM 1.62 MG/DL (0.60-1.30); POTASSIUM 4.6 MMOL/L (3.6-5.0)
[2019-08-19 20:38] LABS: CALCIUM 5.9 MG/DL (8.5-10.1)
--- NOTE | 2019-08-19 20:40 | NUR ---
182 DR GODWIN NOTIFIED OF PT'S ARRIVAL TO FLOOR, THIS RN REQUESTED ABG, PT'S EXTREMITIES COLD AND BP NOTED TO BE LOW 80/50'S ORDERS RECEIVED TO OBTAIN ABG'S AND CONSULT SURGERY FOR CENTRAL LINE PLACEMENT. ORDERS RECEIVED TO START DOBUTAMINE, SEPSIS PROTOCOL, OBTAIN LACTIC ACID. 1839 DR BARNEY NOTIFIED OF CONSULT, 1844 DR GODWIN ON FLOOR TO SEE PATIENT, DR SHAHID ON FLOOR TO SEE PT. 2ND LINE STARTED BY Bren CLINE RN. 22 GAUGE LEFT FOREARM. 1899 DOBUTAMINE STARTED, LEVOPHED STARTED AT 0.1 1 AMP BICARB GIVEN AT 1918 1919 LACTIC ACID BACK AND DR GODWIN NOTIFIED 1919 LEVOPHED STARTED AT 0.05
--- NOTE | 2019-08-19 20:50 | Anesthesia-Procedure Note ---
Procedures/Interventions Procedure Start/Stop/Diagnosis Date of Procedure: Aug 19, 2019 Start Time: 20:20 Stop Time: 20:30 Intubation Reason Intubation/Diagnosis: code blue, cardiac arrest RSI: Yes Intubation Method: orotracheal Videoscope used: Yes (Glidescope) Grade View: 1 Medications: Succinylcholine (100mg) Mask Ventilation: positive Positive End Tide CO2: Yes Breath Sounds after Intubation: bilateral-equal ETT Securred @ (cm): 22 Intubated with ease: Yes Intubation Complications: no complications Post Procedure Cardiac Resuscitation attempts were stopped at [address] Greene order. ISIDRO SMITH CRNA Aug 19, 2019 20:50 POS
--- NOTE | 2019-08-19 20:50 | NUR ---
1920 DR BARNEY ON FLOOR FOR CENTRAL LINE PLACEMENT.
--- NOTE | 2019-08-19 20:53 | Diagnostic Imaging Report ---
EXAMINATION: Chest radiograph, portable AP view. DATE: 08/19/2019 8:23 PM. INDICATION: 79-year-old female, central line placement. COMPARISON: September 18, 2019 at 1416 hours. FINDINGS: There has been a newly placed left internal jugular central venous line. This initially descends to the left of midline and then crosses midline. This is of uncertain exact positioning, could be arterial. Recommend correlation. Stable cardiomegaly. There is a redemonstrated large hiatal hernia. There is no identified pneumothorax. There is blunting of the left lateral costophrenic angle. Multiple wires and leads overlying the patient do limit the exam. IMPRESSION: Newly placed left internal jugular central venous line initially descends to the left of midline and is uncertain in exact position. This potentially could be arterial. Recommend correlation. Dictated by: Dictated on workstation # [id number]
[2019-08-19] MEDS ORDERED: CARVEDILOL 3.125 MG (COREG) TABLET PO SCH (21:00)
[2019-08-19] MEDS ORDERED: ENALAPRIL 2.5 MG (VASOTEC) TAB PO SCH (21:00)
--- NOTE | 2019-08-19 21:23 | Discharge Summary ---
Discharge Summary Hospital Course Was the Problem List Reviewed?: Yes Problems/Dx: (1) Cardiogenic shock Status: Acute (2) Hemorrhagic shock Status: Acute (3) Lactic acidosis Status: Acute (4) High anion gap metabolic acidosis Status: Acute (5) CAD (coronary artery disease) Status: Acute Qualifiers: (6) STEMI (ST elevation myocardial infarction) Status: Acute Qualifiers: Qualified Codes: I21.02 - ST elevation (STEMI) myocardial infarction involving left anterior descending coronary artery Hospital Course Date of Admission: Aug 19, 2019 at 18:29 Admission Diagnosis : STEMI Family Physician/Provider: Jaren De León DO Date of Discharge: 08/19/19 Discharge Diagnosis: Cardiogenic shock due to STEMI Hospital Course: Jess Painter was an 79yoF who presented to the [facility] ER with nausea, vomiting, diarrhea, and dyspnea on exertion. She was found to have an STEMI and was transferred to [facility] for cardiac catheterization. Dr. Greene performed the cath but there were no lesions amenable to PCI. She had a critical stenosis of her proximal LAD. She was transferred to the ICU where she developed hypotension and was started on pressors for cardiogenic shock. Further evaluation revealed a significant drop in hemoglobin and transfusion was ordered. She ultimately suffered cardiac arrest and resuscitation efforts were unsuccessful. Time of was 2029. Labs and Pending Lab Test: Laboratory Tests 08/19/19 12:55: White Blood Count 12.9H, Red Blood Count 4.80, Hemoglobin 14.8, Hematocrit 46, Mean Corpuscular Volume 95, Mean Corpuscular Hemoglobin 31, Mean Corpuscular Hemoglobin Concent 32, Red Cell Distribution Width 14.3, Platelet Count 189, Mean Platelet Volume 10.3, Neutrophils (%) (Auto) 84H, Lymphocytes (%) (Auto) 7L , Monocytes (%) (Auto) 8, Eosinophils (%) (Auto) 0, Basophils (%) (Auto) 0, Smooth trophils # (Auto) 10.8H, Lymphocytes # (Auto) 0.9L, Monocytes # (Auto) 1.1H, Eosinophils # (Auto) 0.0, Basophils # (Auto) 0.0, Neutrophils % (Manual) 79, Lymphocytes % (Manual) 6, Monocytes % (Manual) 10, Eosinophils % (Manual) 0, Basophils % (Manual) 0, Metamyelocytes % 2, Band Neutrophils 3, Sodium Level 138, Potassium Level 4.2, Chloride Level 97L, Carbon Dioxide Level 16L, Anion Gap 25H, Blood Urea Nitrogen 25H, Creatinine 1.78H, Estimat Glomerular Filtration Rate 27, BUN/Creatinine Ratio 14, Glucose Level 271H, Lactic Acid Level 12.12*H, Calcium Level 9.5, Corrected Calcium , Magnesium Level 2.4, Total Bilirubin 0.8, Aspartate Amino Transf (AST/SGOT) 519H, Alanine Aminotransferase (ALT/SGPT) 379H, Alkaline Phosphatase 78, Troponin I 65.96*H, Pro-B-Type Natriuretic Peptide 1519.0H, Total Protein 7.7, Albumin 4.6H, Lipase 21 08/19/19 14:10: Lactic Acid Level 11.19*H 08/19/19 14:20: Urine Color YELLOW, Urine Clarity CLEAR, Urine pH 7.5, Urine Specific [place] 1.020, Urine Protein 1+H, Urine Glucose (UA) NEGATIVE, Urine Ketones 1+H, Urine Nitrite NEGATIVE, Urine Bilirubin NEGATIVE, Urine Urobilinogen 0.2, Urine Leukocyte Esterase NEGATIVE, Urine RBC (Auto) TRACEH, Urine RBC 5-10H, Urine WBC NONE, Urine Squamous Epithelial Cells RARE, Urine Crystals NONE, Urine Bacteria NEGATIVE, Urine Casts PRESENT, Urine Granular Casts RARE, Urine Mucus NONE, Urine Culture Indicated NO 08/19/19 15:14: Troponin I 84.07*H, Pro-B-Type Natriuretic Peptide 1449.0H 08/19/19 18:54: Blood Gas Puncture Site RT RAD, Blood Gas Patient Temperature 36.3, Arterial Blood pH 7.28*L, Arterial Blood Partial Pressure CO2 18*L, Arterial Blood Partial Pressure O2 99H, Arterial Blood HCO3 8*L, Arterial Blood Total CO2 8.6L, Arterial Blood Oxygen Saturation 97, Arterial Blood Base Excess -17.7L, Giuseppe Test YES-POS, Blood Gas Ventilator Setting NO, Blood Gas Inspired Oxygen 8 08/19/19 18:55: Lactic Acid Level 11.77*H 08/19/19 20:05: White Blood Count 10.1, Red Blood Count 2.48L, Hemoglobin 7.7#L, Hematocrit 24L, Mean Corpuscular Volume 96, Mean Corpuscular Hemoglobin 31, Mean Corpuscular Hemoglobin Concent 32, Red Cell Distribution Width 14.7H, Platelet Count 90L, Mean Platelet Volume 10.4, Neutrophils (%) (Auto) 81H, Lymphocytes (%) (Auto) 9L , Monocytes (%) (Auto) 10, Eosinophils (%) (Auto) 0, Basophils (%) (Auto) 0, Neutrophils # (Auto) 8.1H, Lymphocytes # (Auto) 0.9L, Monocytes # (Auto) 1.0, Eosinophils # (Auto) 0.0, Basophils # (Auto) 0.0, Sodium Level 144, Potassium Level 4.6, Chloride Level 115#H, Carbon Dioxide Level 11L, Anion Gap 18H, Blood Urea Nitrogen 25H, Creatinine 1.62H, Estimat Glomerular Filtration Rate 31, BUN/Creatinine Ratio 15, Glucose Level 167H, Calcium Level 5.9#*L Assessment/Pt Instructions Patient . Time of 2030. Discharge Planning: <30 minutes discharge planning Discharge Physical Examination Vital Signs Vital Signs Date Time Temp Pulse Resp B/P (MAP) Pulse Ox O2 Delivery O2 Flow Rate FiO2 08/19/19 20:42 89 Vapotherm 8.00 50 08/19/19 18:45 36.3 89 30 104/64 (77) Allergies: Coded Allergies: Sulfa (Sulfonamide Antibiotics) (Verified Allergy, Unknown, 08/19/19) levofloxacin (Verified Allergy, Unknown, 08/19/19) Copy Copies To 1: JAREN DE LEÓN DO Discharge Summary Date of Admission Aug 19, 2019 at 18:29 Date of Discharge Discharge Date: Aug 19, 2019 Discharge Time: 20:30 Admission Diagnosis STEMI Consults/Procedures Consulations Cardiology, General Surgery Procedures Left heart catheterization, central line placement Comfort Measures/ Cardiopulmonary Arrest: Cardiac Arrest Date of : Aug 19, 2019 Time of : 20:30 Discharge Diagnosis Cardiogenic shock due to STEMI (1) Cardiogenic shock Status: Acute (2) Hemorrhagic shock Status: Acute (3) Lactic acidosis Status: Acute (4) High anion gap metabolic acidosis Status: Acute (5) CAD (coronary artery disease) Status: Acute Qualifiers: (6) STEMI (ST elevation myocardial infarction) Status: Acute Qualifiers: Qualified Codes: I21.02 - ST elevation (STEMI) myocardial infarction involving left anterior descending coronary artery Clinical Quality Measures DVT/VTE Risk/Contraindication: Risk Factor Score Per Nursin RFS Level Per Nursing on Admit: 4+=Very High TIERA GODWIN MD Aug 19, 2019 21:22 POS
--- NOTE | 2019-08-19 22:10 | NUR ---
TIMELINE NOTE- 2015-XRAY IN ROOM-PT WENT UNRESPONSIVE-NO PULSE-CPR INITIATED, CODE BLUE CALLED 2015-PAULAU MARTY'Laure IN -DR SHAHID AND DR BARNEY PRESENT 2017-PULSE CHECK-NO PULSE, PEA, CPR RESUMED 2018-1MG ATROPIN GIVEN PER DR SHAHID 2019-PULSE CHECK-NO PULSE-CPR RESUMED 2020-1 MG EPI GIVEN 2021-PULSE CHECK-NO PULSE, RESUME CPR 2022-100 SUCCS GIVEN PER ANAESTHESIA- PT INTUBATED BY ANAESTHESIA 7.5 ETT 20 AT THE LIP 2023- 1MG EPI GIVEN 2024-PULSE CHECK, NO PULSE, RESUME CPR 2026-1MG EPI GIVEN 2029-PULSE CHECK, NO PULSE, EVENT CALLED BY DR SHAHID.
--- NOTE | 2019-08-19 22:15 | NUR ---
TIMELINE NOTE- 2129 UNABLE TO GET A HOLD OF DPOA IMER [facility] 2137-CALLED EMERGENCY CONTACT JOSE MANUEL (FRIEND). PER JOSE MANUEL PT MORTUARY OF CHOICE WAS [facility] 2140-NOTIFIED [facility].
--- NOTE | 2019-08-20 07:43 | OPERATIVE REPORT ---
DATE OF SERVICE: 08/19/2019 PREOPERATIVE DIAGNOSES: Septic shock, venous insufficiency and ST elevation myocardial infarction. POSTOPERATIVE DIAGNOSES: Septic shock, venous insufficiency and ST elevation myocardial infarction. PROCEDURE: Insertion of triple lumen catheter, left IJ with ultrasound guidance. SURGEON: Forrest Barlow DO CAGE CLERK: None. ANESTHESIA: Local lidocaine. BLOOD LOSS: Approximately 5 mL. FLUIDS: None. POSTOPERATIVE CONDITION: Stable. INDICATION FOR PROCEDURE: The patient is an 79-year-old female who came in with nausea, vomiting, diarrhea, dehydration, found to be in STEMI, sent emergently to the lab pack chemist, she had a catheterization performed, now hypotensive and needs a central line access for vasopressor support. FINDINGS: The patient had the central line placed, left IJ. PROCEDURE NOTE: After informed consent was obtained, the patient in her bed in the ICU was sterilely prepped and draped in normal fashion. Ultrasound was used to watch the 18-gauge spinal needle go into the IJ, good flash of blood and then removed the syringe, placed a guidewire using Seldinger technique. Got the access on the third attempt. She was very dehydrated and her ____ were rolling. Once we got this and placed a guidewire using Seldinger technique, it went in easily. Checked with ultrasound; it was in the middle of the IJ. I removed the guidewire, made a stab incision along the guidewire and then over the guidewire placed a dilator using Seldinger technique, removed the dilator and then over the guidewire placed a triple lumen catheter, went in easily and removed the guidewire and then easily aspirated and flushed in all 3 ports and it was then sutured in place with 3-0 nylon. Area was cleaned and dried. A Biopatch and Tegaderm placed. The patient tolerated the procedure. Sponge and needle count correct at the end of the case. Job ID: [id number] DocumentID: [id number] Dictated Date: 08/19/2019 20:17:49 Strategic Marketing Associate Date: 08/19/2019 20:34:28 Dictated By: FORREST BARLOW DO
--- NOTE | 2019-08-20 07:54 | CONSULTATION REPORT ---
DATE OF SERVICE: CARDIAC NOTE The patient presented to the [facility] 24 hours after the onset of myocardial infarction and was initially diagnosed with gastroenteritis and sepsis. Subsequent electrocardiogram showed evidence of ST elevation myocardial infarction. She was not reporting any chest pain, but troponin was elevated. She is being transferred to the hospitalist service for treatment of sepsis. We recommended cardiac catheterization because of evidence of recent myocardial infarction. Cardiac catheterization showed proximal occlusion of a small caliber left anterior descending and the infarct ____ because the troponin was markedly elevated and the left ventricular angiogram showed anteroapical dyskinesis (aneurysm). Attempt at opening the small caliber left anterior descending was unsuccessful. She was hospitalized in the Intensive Care Unit. Dr. Monae was taking care of her sepsis. She developed hypotension requiring treatment of her metabolic acidosis and initiation of pressor support. A central line placement was requested. Central line was placed by Dr. Barlow. Shortly thereafter, the patient developed bradycardia and pulselessness. She was resuscitated. ACLS protocol was followed. All measures remained futile. Given no response to resuscitation and her multiple comorbidities that include large recent myocardial infarction, sepsis, acute renal failure, we felt that continuing resuscitation would not be of value. I discussed this with her family, who agreed that the resuscitation measure should be stopped. Resuscitation was called off at 8:30 p.m. on 08/19/2019 and the patient was declared . Job ID: [id number] DocumentID: [id number] Dictated Date: 08/19/2019 20:47:30 Label Operator Date: 08/19/2019 21:06:48 Dictated By: LORAINE SHAHID MD, MA, FACP, FACC,
[2019-08-20] MEDS ORDERED: CLOPIDOGREL 75 MG (PLAVIX) TABLET PO SCH (09:00)
[2019-08-20] MEDS ORDERED: SPIRONOLACTONE 25 MG (ALDACTONE) TAB PO SCH (09:00)
[2019-08-20] MEDS ORDERED: FUROSEMIDE 40 MG/4 ML INJ (LASIX) IVP SCH (09:00)
== END 2019-08-19 20:30 | disposition expired ==
LOC: ER FS 11:49 → CATH 16:24 → ICU 18:29
PROVIDERS: ADMIT Internal Medicine; ATTEND Internal Medicine
PROC: 02JY3ZZ Inspection of Great Vessel, Percutaneous Approach (ICD-10-PCS; principal; 2019-08-19)
PROC: 4A023N7 Measurement of Cardiac Sampling and Pressure, Left Heart, Percutaneous Approach (ICD-10-PCS; 2019-08-19)
PROC: B2111ZZ Fluoroscopy of Multiple Coronary Arteries using Low Osmolar Contrast (ICD-10-PCS; 2019-08-19)
PROC: B2151ZZ Fluoroscopy of Left Heart using Low Osmolar Contrast (ICD-10-PCS; 2019-08-19)
DX: I21.02 ST elevation (STEMI) myocardial infarction involving left anterior descending coronary artery (principal); R57.0 Cardiogenic shock; R57.8 Other shock; E87.2 Acidosis; I11.0 Hypertensive heart disease with heart failure; I50.21 Acute systolic (congestive) heart failure; I25.10 Atherosclerotic heart disease of native coronary artery without angina pectoris; N17.9 Acute kidney failure, unspecified; I87.2 Venous insufficiency (chronic) (peripheral); I25.5 Ischemic cardiomyopathy; K43.9 Ventral hernia without obstruction or gangrene; N32.81 Overactive bladder; F32.9 Major depressive disorder, single episode, unspecified
CPT/HCPCS: 36415; 51702; 71045; 80048; 80053; 81000; 82805; 83605; 83690; 83735; 83880; 84484; 85007; 85025; 85027; 87040; 93458